=== PATIENT | female | born 1975 | race Caucasian/White ===

== ENCOUNTER 2020-06-07 11:31 | Emergency (ER) | payer MEDICAID, SELFPAY ==
[2020-06-07 11:44] VITALS: BP 120/66; PULSE 82; RESP 18; TEMP 36.8; O2SAT 100; BMI 32.1
--- NOTE | 2020-06-07 12:21 | HMH.EDUTC ---
[facility] [place] Clinical Impression: Exposure to COVID-19 virus Disposition: Home, Self-Care Condition on Discharge: Good Instructions: Preventing the Spread of Coronavirus Discharge Instructions Additional Instructions: Drink plenty of fluids. Take tylenol or ibuprofen for pain or fever. Follow up with your regular doctor. GO TO THE ER FOR ANY WORSENING SYMPTOMS FOLLOW THE DIRECTIONS ON THE COVID-19 HAND OUT THAT WE GAVE YOU REGARDING SELF-ISOLATION UNTIL YOU KNOW YOUR COVID-19 RESULTS Referrals: PCP,No [Primary Care Provider] - Time of Disposition: 12:23 Medical Decision Making - Medical Records Medical records reviewed: No: I reviewed the patient's medical records. - Duane Inquiry Pt receiving controlled substance: No Vital Signs: 06/07/20 11:44 06/07/20 12:44 Temperature 98.2 F 98.2 F Temperature Source Oral Oral Pulse Rate 82 Pulse Rate [Radial] 82 Respiratory Rate 18 18 Blood Pressure 120/66 Blood Pressure [Right Arm] 120/66 Blood Pressure Mean [Right Arm] 84 Blood Pressure Source Automatic Cuff Blood Pressure Source [Right Arm] Automatic Cuff Blood Pressure Position Sitting Blood Pressure Position [Right Arm] Sitting 02 Sat by Pulse Oximetry 100 Oxygen Delivery Method Room Air Room Air [facility] [place] - General Stated complaint: Covid test Time Seen by Provider: 06/07/20 12:22 Mode of Arrival: Ambulatory Source of Information: Patient Limitations: No Limitations Description of Symptoms (Recalled from Triage Doc. by RN): covid test HEENT Symptoms (Recalled from RN notes): No Resp Symptoms (Recalled from RN notes): No Skin Symptoms (Recalled from RN notes): No MS Symptoms (Recalled from RN notes): No Functional Status (Recalled from RN notes): wnl - History of Present Illness Provider Complaint: He is here to have a covid test for work; - Related Data Allergies Allergy/AdvReac Type Severity Reaction Status Date / Time CODEINE Allergy Mild I-ITCHING,R Uncoded 08/17/17 14:54 TOY - Worker's Comp Is this a Worker's Comp case?: No [facility] History - Hepatitis A Screen Drug use history?: No High risk sexual behaviors?: No History of sexually transmitted infection?: No Currently employed?: No Childcare worker?: No Do you have indoor plumbing?: Yes Do you have electricity?: Yes Attestation statement:: This patient has been screened for Hepatitis A risk factors. I have reviewed the patient's past medical history: Yes - Social History Smoking Status: Current every day smoker Tobacco Type: cigarettes # Packs/Day (cigarettes): 1 Alcohol Intake: never Occupational Status: other ROS Obtained: Yes All systems reviewed & no additional complaints - Constitutional Constitutional: Denies chills, Denies fever(s), Denies poor appetite, Denies malaise - Eyes Eyes: Denies eye discharge - ENT Ears, Nose, Mouth, and Throat: Denies dizziness, Denies otalgia, Denies sore throat - Cardiovascular Cardiovascular: Denies chest pain - Respiratory Respiratory: No chest congestion, No cough Physical Exam - General General appearance: alert, in no apparent distress - Head Head exam: atraumatic, normocephalic, normal inspection - Eye Eye exam: Present: normal appearance, PERRL, EOMI - ENT ENT exam: Present: normal exam, normal oropharynx, mucous membranes moist, TM's normal bilaterally, normal external ear exam - Neck Neck exam: Present: normal inspection, full ROM, trachea midline. Absent: meningismus, lymphadenopathy - Chest Chest inspection: Present: normal inspection, symmetric chest wall rise. Absent: tenderness - Respiratory Respiratory exam: Present: normal lung sounds bilaterally. Absent: respiratory distress - Cardiovascular Cardiovascular exam: Present: regular rate, normal rhythm. Absent: JVD - Abdominal Exam Abdominal exam: Present: soft, normal bowel sounds. Absent: distention, tenderness, guarding - Extremitie
[2020-06-07 12:44] VITALS: BP 120/66; PULSE 82; RESP 18; TEMP 36.8; O2SAT 100
== END 2020-06-07 12:44 | disposition home or self-care (01) ==
PROVIDERS: Emergency Provider Nurse Practitioner Family
DX: Z20.828 Contact with and (suspected) exposure to other viral communicable diseases (principal); F17.210 Nicotine dependence, cigarettes, uncomplicated
CPT/HCPCS: 99201; U0003

== ENCOUNTER 2020-08-09 07:49 | Emergency (ER) | payer MEDICAID, SELFPAY ==
[2020-08-09 07:50] VITALS: BP 117/80; PULSE 116; RESP 18; TEMP 37.3; O2SAT 98; BMI 32.0
--- NOTE | 2020-08-09 08:31 | HMH.EDGENADL ---
ED Disposition Clinical Impression: Pharyngitis Qualifiers: Pharyngitis/tonsillitis etiology: unspecified etiology Qualified Code(s): J02.9 - Acute pharyngitis, unspecified Disposition: Home, Self-Care Condition on Discharge: Good Additional Instructions: Please take meds as prescribed. Please drink plenty of clear fluids as well. If any voice changes, difficulty swallowing fluids, difficulty opening mouth, high fever/chills, generalized malaise, or other new concerning symptoms please immediately report back to our emergency department. Prescriptions: Penicillin V Potassium 500 mg PO BID 10 Days #20 tab Transmission Status: Pending to [facility] Referrals: PCP,No [Primary Care Provider] - - Critical Care Critical Care Time: No Attestation: On 08/09/20, the high probability of a clinically significant, sudden or life threatening deterioration of the following system(s) required my full and direct attention, intervention and personal management. The time I documented below is in addition to time spent performing reported procedures but includes the following listed in this critical care notation. Medical Decision Making - Medical Records Medical records reviewed: Yes: I reviewed the patient's medical records. - Duane Inquiry Pt receiving controlled substance: No Vital Signs: 08/09/20 07:50 Temperature 99.1 F Temperature Source Oral Pulse Rate [Left Radial] 116 H Respiratory Rate 18 Blood Pressure [Right Arm] 117/80 Blood Pressure Mean [Right Arm] 92 Blood Pressure Source [Right Arm] Automatic Cuff Blood Pressure Position [Right Arm] Sitting 02 Sat by Pulse Oximetry 98 Oxygen Delivery Method Room Air Orders (Tests/Meds): ED MEDICATIONS Discontinued Medications Generic Name Dose Route Start Last Admin Trade Name Solomonq PRN Reason Stop Dose Admin Dexamethasone 10 mg 08/09/20 08:36 Dexamethasone 1mg/1ml Intensol 10ml Udc (Er) PO 08/09/20 08:37 ONCE ONE ORDERS Category Date Time Status Rapid Strep Scrn Group A [Strep Scrn Group A (Rapid)] Lab 08/09/20 08:33 Ordered Stat Medical Decision Narrative: Patient 39-year-old female presenting with sore throat. At this time, she is hemodynamically stable without any phonation changes or any other red flag symptoms of sore throat including trismus/odynophagia. She does appear to be clinically hydrated. 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 Based on exam, patient will be given 1 dose of p.o. dexamethasone here in the emergency department due to her difficulty swallowing and a strep swab will be obtained. I do believe empiric antibiotic treatment is indicated that she does have left tonsillar exudate, cervical lymphadenopathy, absence of cough. At this time, she has improved somewhat after p.o. dexamethasone and does tolerate p.o. fluids and I do believe is safe to be discharged with strep swab pending. 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 Patient agrees with the above listed plan. She will drink plenty of clear fluids and return immediately to the emergency department if any fever/chills, changes in voice, difficulty swallowing fluids, trismus, or other new changes. Assessment: Pharyngitis Disposition: Home on antibiotics with follow-up General Adult HPI - General Chief complaint: Ear Stated complaint: Ear ache Time Seen by Provider: 08/09/20 08:20 Mode of Arrival: Ambulatory Limitations: No Limitations Description of Symptoms (Recalled from ER Triage Doc. by RN): c/o left ear pain since Wednesday and some drainage on that side. The pain increased last night and her mom gave her some drops for her ear but it didnt help. - History of Present Illness HPI narrative: Patient healthy 39-year-old female does have history of tobacco abuse presenting with left throat pain.
[2020-08-09 08:55] VITALS: BP 124/75; PULSE 112; RESP 18; TEMP 37.3; O2SAT 98
[2020-08-09 09:36] LABS: Strep Scrn Group A (Rapid) Positive (Negative)
== END 2020-08-09 08:56 | disposition home or self-care (01) ==
PROVIDERS: Emergency Provider Emergency Medicine
DX: J02.0 Streptococcal pharyngitis (principal); F17.210 Nicotine dependence, cigarettes, uncomplicated; Z88.5 Allergy status to narcotic agent
CPT/HCPCS: 87430; 99282

== ENCOUNTER → 2020-09-27 13:36 | Outpatient (CLI) | payer MEDICAID, SELFPAY ==
[2020-09-27 14:31] LABS: Alanine Aminotransferase 16 U/L (12-78); Albumin Level 4.7 g/dl (3.5-5.0); Albumin/Globulin Ratio 1.3 (1.1-1.8); Alkaline Phosphatase 98 U/L (38-126); Anion Gap 15.8 mEq/L (5-15); Aspartate Amino Transferase 27 U/L (14-36); Bilirubin,Total 0.7 mg/dl (0.2-1.3); Blood Urea Nitrogen 7 mg/dl (7-17); Calcium 9.9 mg/dl (8.4-10.2); Carbon Dioxide 28 mmol/L (22.0-30.0); Chloride 100 mmol/L (98-107); Cholesterol 214 mg/dl (140-200); Estimated Glomerular Filt Rate 90 ml/min (>60); GFR (African American) 109 ML/MIN (>60); Globulin 3.6 g/dL (1.3-3.2); Glucose 102 mg/dl (74-100); HDL Cholesterol 43 mg/dl (40-60); Potassium 3.8 mmoL/L (3.5-5.1); Sodium 140 mmol/L (136-145); Total Protein,Serum 8.3 g/dl (6.3-8.2); Triglycerides 148 mg/dl (30-150); VLDL Cholesterol 30 mg/dL (0-40)
[2020-09-27 14:33] LABS: Basophils # 0.1 K/mm3 (0-0.2); Basophils % 0.3 % (0.1-2.0); Eosinophils # 0.1 K/mm3 (0.0-0.4); Eosinophils % 0.5 % (0.1-12.0); Hematocrit 45.1 % (37.0-47.0); Hemoglobin 14.7 g/dL (12.2-16.2); Lymphocytes # 4.3 K/mm3 (0.7-4.5); Lymphocytes % 26.7 % (10-50); Mean Corpuscular HGB Conc 32.6 g/dL (31.8-35.4); Mean Corpuscular Volume 94.9 fl (81-99); Mean Platelet Volume 9.5 fl (7.4-10.4); Monocytes # 0.6 K/mm3 (0.1-1.0); Monocytes % 3.9 % (1.7-9.3); Neutrophils # 11.1 K/mm3 (1.8-7.8); Neutrophils % 68.6 % (37.0-80.0); Platelet Count 314 K/mm3 (142-424); Red Blood Count 4.76 M/mm3 (4.20-5.40); Red Cell Distribution Width 15.2 % (11.5-17.5); White Blood Count 16.1 K/mm3 (4.8-10.8)
[2020-09-27 14:37] LABS: MANUAL DIFFERENTIAL MANUAL DIFFERENTIAL (MANUAL DIFF)
[2020-09-27 14:43] LABS: Direct LDL Cholesterol 137.99 mg/dL (100-129)
[2020-09-27 14:53] LABS: 25-OH Vitamin D, Total < 12.8 ng/mL (30-100)
[2020-09-27 17:12] LABS: Lymphocytes % 35 % (10-50); Monocytes % 2 % (2-9); Neutrophils % 63 % (42-76); Platelet Estimate Normal; RBC Morphology Normal; Total Cells Counted 100
== END ==
PROVIDERS: Visit Provider Emergency Medicine
DX: R53.83 Other fatigue (principal); I73.9 Peripheral vascular disease, unspecified; E55.9 Vitamin D deficiency, unspecified; E66.9 Obesity, unspecified; Z68.30 Body mass index [BMI] 30.0-30.9, adult; Z72.0 Tobacco use; Z79.899 Other long term (current) drug therapy
CPT/HCPCS: 80053; 80061; 82306; 84436; 84443; 85007; 85025

== ENCOUNTER → 2020-10-11 15:35 | Outpatient (CLI) | payer MEDICAID, SELFPAY ==
--- NOTE | 2020-10-11 15:56 | US_ITS ---
APPROVED REPORT Exam Type: Ankle to Brachial Index Fire Fighter: RT Efren(R) Indications Claudication: Bilaterally Rest Pain: Bilaterally Current Smoker bilateral claudication, bilateral rest pain Risk Factors Current Smoker Pressures/Indices Right Indices Left Indices Brachial 118.00 mmHg Brachial 118.00 mmHg Low Thigh 112.00 mmHg 0.95 Low Thigh 118.00 mmHg 1.00 Calf 119.00 mmHg 1.01 Calf 126.00 mmHg 1.07 Ankle(PT) 108.00 mmHg 0.92 Ankle(PT) 124.00 mmHg 1.05 Ankle(DP) 108.00 mmHg 0.92 Ankle(DP) 110.00 mmHg 0.93 Digit 81.00 mmHg 0.69 Digit 84.00 mmHg 0.71 Findings RT NELY=0.92 LT NELY=1.05 RT TBI=0.69 LT TBI=0.71 Normal pulses Normal waveforms Conclusion RT NELY=0.92 LT NELY=1.05 RT TBI=0.69 LT TBI=0.71 Normal pulses Normal waveforms Electronically signed by : Joan Reeder MD 10/18/2020 09:31:21
== END ==
PROVIDERS: PCP Emergency Medicine; Visit Provider Emergency Medicine
DX: M79.662 Pain in left lower leg (principal); M79.661 Pain in right lower leg
CPT/HCPCS: 93923

== ENCOUNTER → 2020-12-13 14:11 | Outpatient (CLI) | payer MEDICAID, SELFPAY | PROVIDERS: PCP Emergency Medicine; Visit Provider Physician Assistant | DX: Z20.822 Contact with and (suspected) exposure to COVID-19 (principal) | CPT/HCPCS: U0003 ==

== ENCOUNTER → 2021-05-09 16:27 | Outpatient (CLI) | payer MEDICAID, SELFPAY ==
[2021-05-09 18:29] LABS: Alanine Aminotransferase 25 U/L (12-78); Albumin Level 4.3 g/dl (3.5-5.0); Albumin/Globulin Ratio 1.3 (1.1-1.8); Alkaline Phosphatase 96 U/L (38-126); Anion Gap 16.7 mEq/L (5-15); Aspartate Amino Transferase 34 U/L (14-36); Bilirubin,Total 0.4 mg/dl (0.2-1.3); Blood Urea Nitrogen 7 mg/dl (7-17); Calcium 9.5 mg/dl (8.4-10.2); Carbon Dioxide 27 mmol/L (22.0-30.0); Chloride 103 mmol/L (98-107); Chol/HDL Ratio 6.5 (1-3.5); Cholesterol 233 mg/dl (140-200); Estimated Glomerular Filt Rate 90 ml/min (>60); GFR (African American) 109 ML/MIN (>60); Globulin 3.4 g/dL (1.3-3.2); Glucose 109 mg/dl (74-100); HDL Cholesterol 36 mg/dl (40-60); Potassium 3.7 mmoL/L (3.5-5.1); Sodium 143 mmol/L (136-145); Total Protein,Serum 7.7 g/dl (6.3-8.2); Triglycerides 168 mg/dl (30-150); VLDL Cholesterol 34 mg/dL (0-40)
[2021-05-09 18:32] LABS: Basophils # 0.1 K/mm3 (0-0.2); Basophils % 0.5 % (0.1-2.0); Eosinophils # 0.1 K/mm3 (0.0-0.4); Eosinophils % 0.5 % (0.1-12.0); Hematocrit 45.8 % (37.0-47.0); Hemoglobin 14.7 g/dL (12.2-16.2); Lymphocytes # 3.3 K/mm3 (0.7-4.5); Mean Corpuscular HGB Conc 32.2 g/dL (31.8-35.4); Mean Corpuscular Hemoglobin 32.2 pg (27.0-31.2); Mean Corpuscular Volume 100.1 fl (81-99); Monocytes # 0.6 K/mm3 (0.1-1.0); Neutrophils # 6.6 K/mm3 (1.8-7.8); Neutrophils % 61.9 % (37.0-80.0); Platelet Count 346 K/mm3 (142-424); Red Blood Count 4.57 M/mm3 (4.20-5.40); Red Cell Distribution Width 14.8 % (11.5-17.5); White Blood Count 10.6 K/mm3 (4.8-10.8)
[2021-05-09 18:40] LABS: Direct LDL Cholesterol 148.14 mg/dL (100-129)
[2021-05-09 18:46] LABS: 25-OH Vitamin D, Total 32.2 ng/mL (30-100); Free T4 (Free Thyroxine) 1.11 ng/dl (0.78-2.19)
[2021-05-09 19:00] LABS: Thyroid Stimulating Hormone 0.59 uIU/mL (0.465-4.68)
[2021-05-11 09:54] LABS: Hep A Ab, IgM Negative (Negative); Hep A Ab, Total Positive (Negative); Hep B Core Ab, Total Negative (Negative); Hep B Surface Ab, Qual Non Reactive (.); Hepatitis B Surface Antigen Negative (Negative); Hepatitis C Antibody <0.1 s/co ratio (0.0-0.9)
[2021-05-12 00:05] LABS: HIV Screen 4th Generation wRfx Non Reactive (Non Reactive)
[2021-05-12 20:44] LABS: ALT (SGPT) P5P 23 IU/L (0-40); Alpha 2-Macroglobulins, Qn 164 mg/dL (110-276); Apolipoprotein A-1 105 mg/dL (116-209); Bilirubin, Total 0.2 mg/dL (0.0-1.2); Fibrosis Score 0.06 (0.00-0.21); GGT 37 IU/L (0-60); Haptoglobin 341 mg/dL (42-296); Necroinflammat Activity Grade A0-No activity (.); Necroinflammat Activity Score 0.07 (0.00-0.17)
== END ==
PROVIDERS: Visit Provider Emergency Medicine
DX: G62.9 Polyneuropathy, unspecified (principal); E55.9 Vitamin D deficiency, unspecified; E66.9 Obesity, unspecified; Z68.32 Body mass index [BMI] 32.0-32.9, adult; R94.5 Abnormal results of liver function studies; Z79.899 Other long term (current) drug therapy; Z11.4 Encounter for screening for human immunodeficiency virus [HIV]; F17.210 Nicotine dependence, cigarettes, uncomplicated
CPT/HCPCS: 80053; 80061; 81596; 82306; 84439; 84443; 85025; 86703; 86704; 86706; 86708; 87340; 87380; 87522; 87902; G0432

== ENCOUNTER → 2021-05-20 08:05 | Outpatient (CLI) | payer MEDICAID, SELFPAY ==
[2021-05-20 08:45] VITALS: PULSE 89; PULSE 90
== END ==
PROVIDERS: PCP Emergency Medicine; Visit Provider Emergency Medicine
DX: R06.02 Shortness of breath (principal)
CPT/HCPCS: 94060; 94618; 94640; 94726; 94729

== ENCOUNTER → 2021-08-21 06:15 | Outpatient (CLI) | payer MEDICAID, SELFPAY ==
--- NOTE | 2021-08-21 | CA_ITS ---
APPROVED REPORT Exam: Pharmacologic Technologist: Gianna Omalley, Ht: 5 ft 2 in Wt: 175 lbs BSA: 1.81 m2 HR: 88 bpm BP: 127/85 mmHg Rhythm: NSR, right axis deviation Medical History Medical History: Hyperlipidemia Medications: Gabapentin,,,,, Albuterol,,,,, BREo,,,,, AtorvaASTATIN,,,,, Cardiac Risk Factors: Hyperlipidemia, Smoking Stress Test Details Test: LEXISCAN HR Resting HR: 100 bpm Max Heart Rate (APMHR): 174.987378 bpm Max HR Achieved: 127 bpm Target HR (85% APMHR): 147.674177 bpm % of APMHR: 72.99 Recovery HR: 103 bpm BP Resting BP: 127/85 mmHg Max BP: 127/85 mmHg Recovery BP: 124.0/77.0 mmHg ECG Resting ECG: NSR, right axis deviation Clinical Exercise duration: 04:01 min Highest Stage Achieved: Exercise capacity: 1.0 METs Stress ECG Conclusion During lexiscan pt experinced SOA, no CP. No arrhythmias noted. NS ST changes. Unremarkable lexiscan stress. Myoview images reported separately. Test Summary REST . . . . . . . Sitting REST 02:57 . . 100 . 127/ 85 . . Stage 1 01:00 . . 121 . . . . Stage 2 01:00 . . 112 . 113/ 74 . . Stage 3 01:00 . . 106 . 115/ 74 . . Stage 4 01:00 . . 103 . 112/ 72 . . Stage 4 01:01 . . 103 . 112/ 72 . Stop exercise at 04:01 RECOVERY 01:00 . . 111 . . . . RECOVERY 02:00 . . 108 . 124/ 77 . . RECOVERY 03:00 . . 103 . 115/ 79 . . RECOVERY 03:14 . . 102 . 115/ 79 . . Electronically signed by : Law Kapadia MD 08/21/2021 18:52:52
--- NOTE | 2021-08-21 06:16 | NM_ITS ---
APPROVED REPORT Exam: Nuclear Stress Test Patient Location: Outpatient Stress Tech: Gianna MORALES Tech:Adalgisa KellyBRITTANY RT(R)(N) Ht: 5 ft 1 in Wt: 175 lbs Bra Size: 38c HR: 88 bpm BP: 127/85 mmHg BSA: 1.78 m2 BMI: 33.0 Procedure: Patient received a 0.4 mg of intravenous Lexiscan, resting heart rate 88 bpm, resting blood pressure 127/85 mmHg, with Lexiscan maximum heart rate achived was 112 bpm which is Less than 85 % of the maximum predicted heart rate and blood pressure was 115/74 mmHg. With Lexiscan, patient denied any complaint of chest pain. pt unable to lay on her belly due to her breathing Electrocardiogram Resting electrocardiogram shows sinus rhythm, with Lexiscan there is less than 1.[address] segment depression noted from the baseline EKG. The EKG portion of the Lexiscan Myoview is nondiagnostic. Cardiac Stress and Resting SPECT Images: Cardiac Stress and Resting SPECT images were obtained using technetium 99m Myoview 30.7 mCi stress and 10.47 mCi at rest. Gated SPECT for analysis of segmental wall motion and calculation of the ejection fraction also done. Cardiac stress and rest SPECT may show uniform myocardial activity without segmental perfusion abnormality compared right ejection fraction is 47% with no regional wall motion abnormality, right ventricle is normal size and contractility. Conclusion: 1. The EKG portion of the Lexiscan is nondiagnostic. 2. No scintigraphic evidence of reversible ischemia seen, compared right ejection fraction is 47% with no regional wall motion abnormality, right ventricle is normal size and contractility. 3. Normal Lexiscan Myoview study. Electronically signed by : Law Kapadia MD 08/21/2021 19:03:45
== END ==
PROVIDERS: PCP Emergency Medicine; Visit Provider Emergency Medicine
DX: R07.9 Chest pain, unspecified (principal)
CPT/HCPCS: 78452; 93017; A9502; J2785

== ENCOUNTER 2021-10-27 14:10 | Emergency (ER) | payer MEDICAID, SELFPAY ==
[2021-10-27 14:17] VITALS: BP 144/68; PULSE 78; TEMP 36.6; O2SAT 97; BMI 34.0
[2021-10-27 14:37] LABS: Apearance,Urine Clear (Clear); Color,Urine Yellow (Yellow); PH,Urine 7.5 (5.0-8.5); Specific Gravity, Urine 1.015 (1.005-1.030)
[2021-10-27 14:38] LABS: Bilirubin,Urine Negative (Negative); Blood, Urine Negative (Negative); Glucose,Urine (UA) Negative (Negative); Ketones,Urine Negative (Negative); Protein,Urine Negative (Negative); UTC Leukocyte Esterase,Urine Negative (Negative); UTC Nitrate,Urine Negative (Negative); Urobilinogen,Urine 0.2 EU/dl (0.2)
[2021-10-27 14:42] VITALS: BP 148/68; PULSE 78; RESP 18; TEMP 36.6; O2SAT 97; BMI 34.0
--- NOTE | 2021-10-27 15:41 | HMH.EDUTC ---
[facility] [place] Clinical Impression: Vaginal yeast infection Disposition: Home, Self-Care Condition on Discharge: Good Instructions: DI for Vaginal Yeast Infection, Fluconazole Additional Instructions: Take medication as prescribed FOllow up with your Family Doctor if no improvement or any worsening of symptoms Return if needed Straight to ER if any life threatening symptoms Prescriptions: Fluconazole [Diflucan 150mg tab] 150 mg PO ONCE #1 tab Transmission Status: Pending to [facility] Referrals: Ronnie Ball MD [Primary Care Provider] - As needed Time of Disposition: 15:49 Medical Decision Making - Duane Inquiry Pt receiving controlled substance: No Duane was queried for this patient: No Vital Signs: 10/27/21 14:17 10/27/21 14:42 Temperature 97.8 F 97.8 F Temperature Source Oral Oral Pulse Rate [Left Radial] 78 78 Respiratory Rate 18 Blood Pressure [Left Arm] 144/68 H 148/68 H Blood Pressure Mean [Left Arm] 93 94 Blood Pressure Source [Left Arm] Automatic Cuff Manual Cuff/ Doppler Blood Pressure Position [Left Arm] Sitting Sitting 02 Sat by Pulse Oximetry 97 97 Oxygen Delivery Method Room Air Room Air - Lab Data Lab results reviewed: Yes: I reviewed the patient's lab results. Lab Results 10/27/21 14:20: Urine Color Yellow, Urine Appearance Clear, Urine pH 7.5, Ur Specific [place] 1.015, Urine Protein Negative, Urine Glucose (UA) Negative, Urine Ketones Negative, Urine Blood Negative, Urine Nitrate Negative, Urine Bilirubin Negative, Urine Urobilinogen 0.2, Ur Leukocyte Esterase Negative [facility] [place] - General Stated complaint: possible kidney inf Time Seen by Provider: 10/27/21 15:41 Mode of Arrival: Ambulatory Source of Information: Patient Limitations: No Limitations Description of Symptoms (Recalled from Triage Doc. by RN): Pt stated that she thinks she has a kidney infection. She has burning when she urinates, and she has back pain for the past 3 days. HEENT Symptoms (Recalled from RN notes): No Resp Symptoms (Recalled from RN notes): No Skin Symptoms (Recalled from RN notes): No MS Symptoms (Recalled from RN notes): No Functional Status (Recalled from RN notes): n/a - History of Present Illness Provider Complaint: Patient states that she has been feeling achy in her back but she has history of back pain States that she has been having burning and itching in her vaginal area worse when she urinates, irritated and had a little white thick discharge thinks she may have a UTI - Related Data Home Medications Medication Instructions Recorded Confirmed fluticasone furoate 100 1 inh INHALATION DAILY 08/13/21 08/13/21 mcg-vilanterol 25 mcg/dose inhalation powder Atorvastatin Calcium [Lipitor 10mg See Rx Instructions .ROUTE .COMPLEX 10/27/21 10/27/21 Tab] Gabapentin 600 mg PO TID 10/27/21 10/27/21 Previous Rx's Medication Instructions Recorded albuterol sulfate 90 mcg/actuation 2 inh INHALATION Q4-6H PRN #1 each 08/13/21 breath activated powder inhaler Fluconazole [Diflucan 150mg tab] 150 mg PO ONCE #1 tab 10/27/21 Allergies Allergy/AdvReac Type Severity Reaction Status Date / Time codeine Allergy Mild Rash Verified 10/27/21 14:45 - Worker's Comp Is this a Worker's Comp case?: No Is this an H Worker's Comp?: No Is this a [place] Worker's Comp?: No [facility] History - Hepatitis A Screen Drug use history?: No High risk sexual behaviors?: No History of sexually transmitted infection?: No Currently employed?: No Childcare worker?: No Do you have indoor plumbing?: Yes Do you have electricity?: Yes Attestation statement:: This patient has been screened for Hepatitis A risk factors. I have reviewed the patient's past medical history: Yes Medical History: Reports:: Hyperlipidemia Other Surgeries: Yes: No Previous Surgery Amputation: No Fractures: No - Social History Smoking Status: Current every day smoker Tobacco Type: ciga
[2021-10-27 16:01] VITALS: BP 148/68; PULSE 78; RESP 18; TEMP 36.6; O2SAT 97
== END 2021-10-27 16:01 | disposition home or self-care (01) ==
LOC: ER 14:18 → UTC 14:18
PROVIDERS: Emergency Provider Nurse Practitioner; PCP Emergency Medicine
DX: B37.3 Candidiasis of vulva and vagina (principal)
CPT/HCPCS: 81003; 99212; G0463

== ENCOUNTER → 2021-11-18 16:00 | Outpatient (CLI) | payer MEDICAID, SELFPAY | PROVIDERS: Visit Provider Family Medicine | DX: M54.9 Dorsalgia, unspecified (principal); B96.20 Unspecified Escherichia coli [E. coli] as the cause of diseases classified elsewhere | CPT/HCPCS: 87086; 87088; 87186 ==

== ENCOUNTER 2022-01-20 12:11 | Emergency (ER) | payer MEDICAID, SELFPAY ==
[2022-01-20 13:00] VITALS: BP 130/85; PULSE 94; RESP 19; TEMP 37; O2SAT 98; BMI 33.0
[2022-01-20 13:27] LABS: Strep Scrn Group A (Rapid) Negative (Negative)
--- NOTE | 2022-01-20 13:34 | HMH.EDUTC ---
[facility] [place] Disposition Clinical Impression: Pharyngitis Qualifiers: Pharyngitis/tonsillitis etiology: unspecified etiology Qualified Code(s): J02.9 - Acute pharyngitis, unspecified Disposition: Home, Self-Care Condition on Discharge: Good Instructions: Sore Throat, Middle Ear Infection Additional Instructions: *Monitor Temp, Over the counter Motrin or Tylenol as directed/as needed Tylenol every 4 hours and Motrin every 6 hours (as long as your family doctor has told you that you can take it) for fever or pain. and straight to ER if unable to lower temp less than 101.0 after medication given *Warm salt water gargles may help to soothe the throat *Throat Lozenges *Warm fluids like tea with honey may help to soothe the throat *Sleep elevated *Humidifier/Vaporizer Your throat swab was sent for culture. Those results are typically sent to your primary care. Be sure to follow up in 2-3 days with your family doctor/primary care physician if no improvement so they can review those result and treat if necessary. If you don?t have a primary care doctor, I recommend you get one but in the mean time, you will have to return to a walk in clinic Follow up IMMEDIATELY for new or worsening symptoms or no Noticeable improvement over the next 48-72 hours. 911 for difficulty breathing or swallowing Prescriptions: predniSONE [Deltasone 10mg tablet] 10 mg PO BID 5 Days #10 tab Transmission Status: Pending to [facility] Cefdinir [Omnicef 300mg Capsule] 300 mg PO BID #20 cap Transmission Status: Pending to [facility] Referrals: Ronnie Ball MD [Primary Care Provider] - As needed Time of Disposition: 13:42 Medical Decision Making - Duane Inquiry Pt receiving controlled substance: No Duane was queried for this patient: No Vital Signs: 01/20/22 13:00 Temperature 98.6 F Temperature Source Oral Pulse Rate [Right Brachial] 94 H Respiratory Rate 19 Blood Pressure [Right Arm] 130/85 Blood Pressure Mean [Right Arm] 100 Blood Pressure Source [Right Arm] Automatic Cuff Blood Pressure Position [Right Arm] Sitting 02 Sat by Pulse Oximetry 98 - Lab Data Lab results reviewed: Yes: I reviewed the patient's lab results. Lab Results 01/20/22 13:10: Group A Strep Rapid Negative Orders (Tests/Meds): ORDERS Category Date Time Status Strep Screen Confirmation Stat Micro 01/20/22 13:10 Received [facility] [place] HPI - General Stated complaint: sore throat, oral blisters, ear pain Time Seen by Provider: 01/20/22 13:34 Mode of Arrival: Ambulatory Source of Information: Patient Limitations: No Limitations Description of Symptoms (Recalled from Triage Doc. by RN): PATIENT C/O SORE THROAT, BLISTERS ON TONGUE, LEFT EAR PAIN, AND COUGH SINCE WEDNESDAY HEENT Symptoms (Recalled from RN notes): Yes Resp Symptoms (Recalled from RN notes): Yes Skin Symptoms (Recalled from RN notes): No MS Symptoms (Recalled from RN notes): No Functional Status (Recalled from RN notes): WNL - History of Present Illness Provider Complaint: Patient states that she has been having sore throat, feels like she has blisters on her tongue, pain in left ear and cough since states that today she was hoarse and still not feeling well so she came in to get checked - Related Data Home Medications Medication Instructions Recorded Confirmed Atorvastatin Calcium [Lipitor 10mg See Rx Instructions .ROUTE .COMPLEX 01/20/22 01/20/22 Tab] Previous Rx's Medication Instructions Recorded gabapentin 600 mg tablet 600 mg PO QID #120 tab 12/30/21 hydrocodone 7.5 mg-acetaminophen 1 tab PO TID PRN #90 tab 12/30/21 325 mg tablet Cefdinir [Omnicef 300mg Capsule] 300 mg PO BID #20 cap 01/20/22 predniSONE [Deltasone 10mg tablet] 10 mg PO BID 5 Days #10 tab 01/20/22 Allergies Allergy/AdvReac Type Severity Reaction Status Date / Time codeine Allergy Mild Rash Verified 12/30/21 10:25 - Worker's Comp Is this a Worker's Comp case
[2022-01-20 13:42] VITALS: BP 130/85; PULSE 94; RESP 19; TEMP 37; O2SAT 98
== END 2022-01-20 13:47 | disposition home or self-care (01) ==
PROVIDERS: Emergency Provider Nurse Practitioner; PCP Emergency Medicine
DX: J02.9 Acute pharyngitis, unspecified (principal); H92.02 Otalgia, left ear; R05.9 Cough, unspecified
CPT/HCPCS: 87430; 99212; G0463

== ENCOUNTER → 2022-02-18 11:37 | Outpatient (CLI) | payer MEDICAID, SELFPAY ==
--- NOTE | 2022-02-18 11:42 | XR_ITS ---
FINAL REPORT CLINICAL HISTORY: back pain, recent falls FINDINGS: 5 views of the lumbar spine were obtained. There is no evidence of fracture or dislocation. The vertebral alignment is normal. There is mild degenerative change with osteophytes. There is facet arthropathy in the lower lumbar spine. There are vascular calcifications noted. IMPRESSION: Degenerative change with osteophytes with no acute bony abnormality. Reviewed, Interpreted and Dictated by Navi Lubin III, MD Transcribed by Janay Cassidy Authenticated and [facility]
--- NOTE | 2022-02-18 11:42 | XR_ITS ---
FINAL REPORT CLINICAL HISTORY: hip pain, recent falls FINDINGS: LEFT HIP: Two views of the left hip demonstrate no acute fracture or dislocation. There is mild degenerative change. The visualized bony structures are well aligned. No soft tissue abnormality is seen. IMPRESSION: Degenerative change with no acute bony abnormality. Reviewed, Interpreted and Dictated by Navi Lubin III, MD Transcribed by Janay Cassidy Authenticated and [facility]
--- NOTE | 2022-02-18 11:42 | XR_ITS ---
FINAL REPORT CLINICAL HISTORY: pelvis pain, recent falls FINDINGS: PELVIS SERIES Three views of the pelvis were obtained. There is no acute fracture or dislocation. Visualized joint spaces are normally aligned. Soft tissues are unremarkable. IMPRESSION: No acute bony abnormality. Reviewed, Interpreted and Dictated by Navi Lubin III, MD Transcribed by Janay Cassidy Authenticated and . [facility]
== END ==
PROVIDERS: PCP Emergency Medicine; Visit Provider Emergency Medicine
DX: R10.2 Pelvic and perineal pain (principal); M25.552 Pain in left hip; M54.50 Low back pain, unspecified
CPT/HCPCS: 72110; 72190; 73502

== ENCOUNTER → 2022-03-02 11:51 | Outpatient (CLI) | payer MEDICAID, SELFPAY ==
[2022-03-02 11:54] LABS: MANUAL DIFFERENTIAL MANUAL DIFFERENTIAL (MANUAL DIFF)
[2022-03-02 12:22] LABS: Basophils # 0.3 K/mm3 (0-0.2); Eosinophils # 0.2 K/mm3 (0.0-0.4); Eosinophils % 1.8 % (0.1-12.0); Hematocrit 44.7 % (37.0-47.0); Hemoglobin 13.6 g/dL (12.2-16.2); Lymphocytes # 3.6 K/mm3 (0.7-4.5); Lymphocytes % 37.2 % (10-50); Mean Corpuscular HGB Conc 30.4 g/dL (31.8-35.4); Mean Corpuscular Hemoglobin 30.1 pg (27.0-31.2); Mean Platelet Volume 8.3 fl (7.4-10.4); Monocytes # 0.5 K/mm3 (0.1-1.0); Monocytes % 5.1 % (1.7-9.3); Neutrophils # 5.1 K/mm3 (1.8-7.8); Neutrophils % 52.9 % (37.0-80.0); Platelet Count 295 K/mm3 (142-424); Red Blood Count 4.51 M/mm3 (4.20-5.40); Red Cell Distribution Width 15.8 % (11.5-17.5); White Blood Count 9.7 K/mm3 (4.8-10.8)
[2022-03-02 12:39] LABS: Chloride 107 mmol/L (98-107); Sodium 140 mmol/L (136-145)
[2022-03-02 12:40] LABS: Potassium 4.3 mmoL/L (3.5-5.1)
[2022-03-02 12:42] LABS: Blood Urea Nitrogen 7 mg/dl (7-17); Estimated Glomerular Filt Rate 77 ml/min (>60); GFR (African American) 93 ML/MIN (>60)
[2022-03-02 12:43] LABS: Anion Gap 11.3 mEq/L (5-15); Calcium 9.9 mg/dl (8.4-10.2); Carbon Dioxide 26 mmol/L (22.0-30.0); Glucose 105 mg/dl (74-100)
[2022-03-02 13:15] LABS: Anisocytosis 1+; Eosinophils % 4 % (0-3); Lymphocytes % 38 % (10-50); Macrocytosis 1+; Monocytes % 7 % (2-9); Neutrophils % 51 % (42-76); Platelet Estimate Normal; Total Cells Counted 100
[2022-03-02 13:16] LABS: Hypochromasia 1+
== END ==
PROVIDERS: PCP Emergency Medicine; Visit Provider Otolaryngology
DX: Z01.812 Encounter for preprocedural laboratory examination (principal); Z20.822 Contact with and (suspected) exposure to COVID-19; L72.0 Epidermal cyst
CPT/HCPCS: 36415; 80048; 85007; 85014; 85018; 85048; 85049; C9803; U0003; U0005

== ENCOUNTER 2022-03-03 07:49 | Day surgery (SDC) | payer MEDICAID, SELFPAY ==
[2022-02-26 10:23] VITALS: BMI 35.3
--- NOTE | 2022-03-03 08:09 | ECG_ITS ---
APPROVED REPORT Exam: Resting ECG HR:79 bpm ECG Measurements Heart Rate 79 AXES WY 177 P 87 QRSd 86 QRS 57 QT 353 T 29 QTc 387 Conclusion SINUS RHYTHM Late R wave progression, unchanged from prior ABNORMAL ECG UNCONFIRMED REPORT Electronically signed by : Kris Dallas MD 03/05/2022 17:49:39
[2022-03-03 08:10] VITALS: BP 112/73; PULSE 79; RESP 16; TEMP 36.4; O2SAT 97
--- NOTE | 2022-03-03 09:48 | P.PN_ITS ---
[facility] Anesthesia Checklist - Patient Identification Patient Identification: Arm Band - Structural Data Admitted From: Home Planned Operative Procedure/s: Excision of Epidermal Cyst Left Cheek Consent for Planned Operative Procedure(s) Verified: Yes Verified Documents: Surgical Consent, History and Physical - NPO Status Verified Time NPO: 00:00 - Additional verifications Anesthesia Reactions: No Hx Blood Transfusions: No Blood Transfusion Reaction: No - Airway Assessment C-Spine Mobility Assessed: Yes (mp2) TMJ Mobility Assessed: Yes Dentition: Dentures-good fit - Neurological Assessment Level of Consciousness: Awake, Alert - Anesthesia Plan Anesthesia Risk discussed: Yes Anesthesia Plan: Verified ASA Class: II Anesthesia Type: MAC [facility] History I have reviewed the patient's past medical history: Yes Medical History: Reports:: Hyperlipidemia Denies:: Cancer, Diabetes Mellitus Type 1, Diabetes Mellitus Type 2, Internal Pacemaker, MRSA, Seizures *Have you ever received a pneumonia vaccine?: No *Have you received a flu vaccine this season?: No Other Medical History: Denies: Blood Transfusion Reaction Anesthesia experience/problems:: nac Other Surgeries: Yes: Hysterectomy-Total. No: Pacemaker Amputation: No Fractures: No - *Social History Last grade of school completed: High school graduate Smoking Status: Current every day smoker Tobacco Type: cigarettes # Packs/Day (cigarettes): 1 Alcohol Intake: never Substance Use Type: former substance user *Occupational Status:: other Housing: house Household Members: significant other *Travel in the last 8 weeks: None Family Hx:: Heart Attack, Coronary Artery Disease, Hypertension
--- NOTE | 2022-03-03 10:57 | HMH.OPNOTE ---
Date of procedure: 03/03/22 Pre-op Diagnosis:: Left facial epidermal inclusion cyst 2 cm in size Post-op Diagnosis:: Left facial epidermal inclusion cyst 2 cm in size Procedure performed:: Excision left facial epidermal inclusion cyst with multilayer closure Surgeon:: Nick Iverson MD SHOW HORSE DRIVER:: Wenceslao Tilley Anesthesia: MAC Estimated blood loss (mL): 0 Operative findings:: Two centimeter probable epidermal inclusion cyst Operative note:: The patient was brought to the operating room and placed supine and after adequate IV sedation, 1% lidocaine with epinephrine was used to locally infiltrate the epidermal inclusion cyst that was over her zygoma 3 cm lateral to her lateral canthus. The face was then prepped and draped in the usual sterile fashion and then a planned elliptical incision outlined designed to fall into a natural skin crease. Incision was made and carried through the underlying dermis and then sharp dissection performed along the capsule of the cyst excising it from the surrounding subcutaneous fat. The cyst was removed entirely intact. Hemostasis was established with bipolar cautery and then the wound closed in 2 layers with 5-0 Vicryl and 6-0 nylon. A sterile dressing was placed and the procedure concluded. All counts correct. Blood loss 0. Patient was sent to recovery in stable condition. Condition: stable Disposition: PACU Complications:: None
[2022-03-03 10:58] VITALS: BP 127/68; PULSE 80; RESP 18; TEMP 36.2; O2SAT 99
[2022-03-03 11:08] VITALS: BP 109/69; PULSE 81; RESP 18; O2SAT 99
[2022-03-03 11:18] VITALS: BP 118/70; PULSE 82; RESP 18; O2SAT 99
[2022-03-03 11:20] VITALS: BP 122/81; PULSE 84; RESP 18; O2SAT 97
== END 2022-03-03 11:20 | disposition home or self-care (01) ==
LOC: OR 07:50
PROVIDERS: PCP Emergency Medicine; Visit Provider Otolaryngology
PROC: (CPT 11442; principal; 2022-03-03 09:30)
DX: L72.0 Epidermal cyst (principal); E78.5 Hyperlipidemia, unspecified; Z72.0 Tobacco use; Z79.899 Other long term (current) drug therapy
CPT/HCPCS: 11442; 93005; 96374

== ENCOUNTER 2022-03-04 17:00 | Outpatient (RCR) | payer MEDICAID, SELFPAY ==
--- NOTE | 2022-02-23 16:07 | HMH.PTOPEV ---
PT Outpatient Evaluation Rehab PT Outpatient Evaluation Start: 02/23/22 14:06 Freq: Status: Active Protocol: Document 02/23/22 14:06 PDESEROUX (Rec: 02/23/22 16:07 [email or web address] [id number]) Electronically Signed By Jeremy Katz PT 02/23/22 14:06 Outpatient Therapy Subjective History Subjective History Pt. is a 46 year old female who presents to [facility] Out[facility] Physical Therapy Services in [place] for the initial evaluation this date( 02/23/22) w/ c/o subacute and constant L-sided LB, hip, and LLE P!, numbness, edema, and giving out of traumatic onset since the first week of December 2021. Pt. reports falling forward and almost onto her face after shoving a shopping cart forward into it's cart hall and noticing the P! when she straightened back up. Pt. reports not having any symptom relief w/ prescribed muscle relaxers nor anti- inflammatories. Pt. reports having some symptom relief w/ laying down and putting a pillow b/t/under her knees. Pt . reports symptoms worsen w/ bending forward, sitting for long periods, and walking for long periods. Pt. reports symptoms will radiate all the way to her toes the longer she sits. Pt. denies numbness/ tingling into the RLE, denies having any bowel/bladder dysfunction at this time. Pt. reports having X-ray last Wednesday(02/18/22), but hasn' t heard back from her MD yet. Pt. denies having injections for current complaint. Current medications include Lipitor, Gabapentin, Lortab, and Narco. 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
== END 2022-04-09 16:56 | disposition home or self-care (01) ==
LOC: PT.CARL 17:00
PROVIDERS: PCP Emergency Medicine; Visit Provider Emergency Medicine
DX: M54.50 Low back pain, unspecified (principal)
CPT/HCPCS: 97010; 97014; 97110; 97140; 97163; G0283

== ENCOUNTER 2022-04-15 14:50 | Emergency (ER) | payer MEDICAID, SELFPAY ==
--- NOTE | 2022-04-15 15:20 | HMH.EDUTC ---
[facility] [place] Clinical Impression: Viral syndrome, Exposure to COVID-19 virus Disposition: Home, Self-Care Condition on Discharge: Good Instructions: DI for COVID-19 (Suspected or Confirmed ), Preventing the Spread of Coronavirus Discharge Instructions Additional Instructions: Drink plenty of fluids. Take tylenol or ibuprofen for pain or fever. Take the medications as directed. Follow up with your regular doctor. GO TO THE ER FOR ANY WORSENING SYMPTOMS Quarantine until you know the results of your covid-19 test. Notify your school or workplace of your results and follow their instructions regarding return to work/school. Prescriptions: Ondansetron [Zofran 4mg ODT] 4 mg PO Q8HP PRN #12 tab PRN Reason: Nausea Transmission Status: Received by [facility] Benzonatate [Benzonatate 100mg cap] 100 mg PO TIDP PRN #30 cap PRN Reason: Cough Transmission Status: Received by [facility] Referrals: Ronnie Ball MD [Primary Care Provider] - Forms: Work/School Release Time of Disposition: 15:37 Medical Decision Making - Medical Records Medical records reviewed: No: I reviewed the patient's medical records. - [place]ane Inquiry Pt receiving controlled substance: No Vital Signs: 04/15/22 15:22 04/15/22 15:42 Temperature 98.7 F 98.7 F Temperature Source Oral Pulse Rate 85 Pulse Rate [Left] 85 Respiratory Rate 17 17 Blood Pressure 115/76 Blood Pressure [Right Arm] 115/76 Blood Pressure Mean [Right Arm] 89 02 Sat by Pulse Oximetry 98 [facility] [place] - General Stated complaint: Positive covid 04/14/22 Bodyache fever sore throat Time Seen by Provider: 04/15/22 15:21 - History of Present Illness Provider Complaint: She tested positive on a home covid-19 test yesterday. She is here today with fever, chills, congestion and feeling very bad. - Related Data Previous Rx's Medication Instructions Recorded albuterol sulfate 90 mcg/actuation 1 puff IH BID PRN #8.5 g 02/26/22 aerosol inhaler atorvastatin 10 mg tablet 10 mg PO DAILY #90 tab 02/26/22 fluticasone 100 mcg-salmeterol 50 1 inh IH BID #60 each 02/26/22 mcg/dose blistr powdr for inhalation fluconazole 100 mg tablet 100 mg PO DAILY 5 Days #5 tab 03/18/22 pantoprazole 40 mg tablet,delayed 40 mg PO DAILY #30 tab 03/18/22 release phentermine 37.5 mg tablet 37.5 mg PO DAILY #30 tab 03/18/22 meloxicam 15 mg tablet See Rx Instructions .ROUTE 03/30/22 .COMPLEX #30 tab gabapentin 600 mg tablet 600 mg PO QID #120 tab 04/07/22 hydrocodone 7.5 mg-acetaminophen 1 tab PO TID PRN #90 tab 04/07/22 325 mg tablet Benzonatate [Benzonatate 100mg 100 mg PO TIDP PRN #30 cap 04/15/22 cap] Ondansetron [Zofran 4mg ODT] 4 mg PO Q8HP PRN #12 tab 04/15/22 Allergies Allergy/AdvReac Type Severity Reaction Status Date / Time codeine Allergy Mild Rash Verified 04/15/22 15:25 [facility] History - Hepatitis A Screen Attestation statement:: This patient has been screened for Hepatitis A risk factors. I have reviewed the patient's past medical history: Yes Medical History: Reports:: Hyperlipidemia Denies:: Cancer, Diabetes Mellitus Type 1, Diabetes Mellitus Type 2, Internal Pacemaker, MRSA, Seizures Other Medical History: Denies: Blood Transfusion Reaction Other Surgeries: Yes: No Previous Surgery, Hysterectomy-Total. No: Pacemaker Amputation: No Fractures: No - Social History Smoking Status: Current every day smoker Tobacco Type: cigarettes # Packs/Day (cigarettes): 1 Alcohol Intake: never Substance Use Type: former substance user Occupational Status: other Housing: house Household Members: significant other Family Hx:: Heart Attack, Coronary Artery Disease, Hypertension ROS Obtained: Yes All systems reviewed & no additional complaints - Constitutional Constitutional: Reports as per HPI - Eyes Eyes: Denies eye discharge - ENT Ears, Nose, Mouth, and Throat: Reports as per HPI - Cardiovasc
[2022-04-15 15:22] VITALS: BP 115/76; PULSE 85; RESP 17; TEMP 37.1; O2SAT 98; BMI 34.0
[2022-04-15 15:42] VITALS: BP 115/76; PULSE 85; RESP 17; TEMP 37.1
== END 2022-04-15 15:43 | disposition home or self-care (01) ==
PROVIDERS: Emergency Provider Nurse Practitioner Family; PCP Emergency Medicine
DX: B34.9 Viral infection, unspecified (principal); Z20.822 Contact with and (suspected) exposure to COVID-19
CPT/HCPCS: 99212; C9803; G0463; U0003; U0005

== ENCOUNTER → 2022-05-01 18:33 | Outpatient (CLI) | payer MEDICAID, SELFPAY ==
[2022-05-01 18:53] LABS: Amphetamine/Metha Screen,Urine Negative ng/ml (<1000)
[2022-05-01 18:54] LABS: Barbiturates Screen,Urine Negative ng/ml (<200)
[2022-05-01 18:57] LABS: Benzodiazepines Screen,Urine Negative ng/ml (<200)
[2022-05-01 18:58] LABS: Cannabinoid Screen,Urine Positive ng/ml (<50)
[2022-05-01 18:59] LABS: Cocaine Screen,Urine Negative ng/ml (<300); Methadone Screen,Urine Negative ng/ml (<300)
[2022-05-01 19:00] LABS: Opiate Screen,Urine Positive ng/ml (<300)
[2022-05-01 19:01] LABS: Phencyclidine Screen,Urine Negative ng/ml (<25)
== END ==
PROVIDERS: PCP Emergency Medicine; Visit Provider Emergency Medicine
DX: Z79.899 Other long term (current) drug therapy (principal)
CPT/HCPCS: 80305

== ENCOUNTER → 2022-08-18 09:30 | Outpatient (CLI) | payer MEDICAID, SELFPAY ==
[2022-08-18 15:07] LABS: Amphetamine/Metha Screen,Urine Negative ng/ml (<1000)
[2022-08-18 15:08] LABS: Barbiturates Screen,Urine Negative ng/ml (<200)
[2022-08-18 15:09] LABS: Benzodiazepines Screen,Urine Negative ng/ml (<200); Cannabinoid Screen,Urine Negative ng/ml (<50)
[2022-08-18 15:10] LABS: Cocaine Screen,Urine Negative ng/ml (<300); Methadone Screen,Urine Negative ng/ml (<300)
[2022-08-18 15:11] LABS: Opiate Screen,Urine Positive ng/ml (<300)
[2022-08-18 15:12] LABS: Phencyclidine Screen,Urine Negative ng/ml (<25)
== END ==
PROVIDERS: PCP Emergency Medicine; Visit Provider Emergency Medicine
DX: Z79.899 Other long term (current) drug therapy (principal)
CPT/HCPCS: 80305

== ENCOUNTER 2022-10-09 08:00 | Outpatient (RCR) | payer MEDICAID, SELFPAY ==
--- NOTE | 2022-09-10 17:13 | HMH.PTOPEV ---
PT Outpatient Evaluation Rehab PT Outpatient Evaluation Start: 09/10/22 16:26 Freq: Status: Active Protocol: Document 09/10/22 16:27 PDESEROUX (Rec: 09/10/22 17:13 [email or web address] [id number]) E-signed By Jeremy Katz, PT Outpatient Therapy Subjective History Subjective History Pt. is a 46 year old female whom presents to [facility] Out[facility] Therapy Services in [place] for the initial evaluation this date( 09/10/22) w/ c/o chronic and constant L-sided lumbar and LLE P!, tingling, and weakness of traumatic onset 6-7 months ago. Pt. reports it was wet outside when she shoved a shopping cart forward resulting in a slip and fall onto her hands and knees when current symptoms originated. Diagnostic imaging(radiograph) positive for sciatica per pt. report. Pt. denies having any recent injections for current complaint. Pt. reports having some symptom relief w/ previous Physical Therapy for current complaint, reports losing her HEP from previous session so pt. has not continued w/ HEP. Pt. reports symptoms worsen w/ laying on her L side, sitting for long periods of time, and bending over. Pt. reports having some symptom relief w/ standing and walking it out. Pt. RTMD 2022. Current medications include Gabapentin and Lortab . PMH includes Hyperlipidemia, partial hysterectomy. Pt. denies hx. of pacemaker, denies hx. of diabetes, denies hx. of cancer(self), reports medicational allergy to codeine, denies latex allergy. Chief Complaint Pain,Stiff,Gives out/Unstable, Paresthesia,Weakness Symptom Type Ache,Sharp,Stabbing,Burning, Tingling,Shooting Symptoms Re
== END 2022-11-17 08:20 | disposition home or self-care (01) ==
LOC: PT 08:00
PROVIDERS: PCP Emergency Medicine; Visit Provider Emergency Medicine
DX: M54.16 Radiculopathy, lumbar region (principal)
CPT/HCPCS: 97010; 97014; 97110; 97140; 97163; 97164; G0283

== ENCOUNTER → 2022-10-23 15:27 | Outpatient (CLI) | payer MEDICAID, SELFPAY ==
[2022-10-23 14:45] LABS: Amphetamine/Metha Screen,Urine Negative ng/ml (<1000)
[2022-10-23 14:46] LABS: Barbiturates Screen,Urine Negative ng/ml (<200); Benzodiazepines Screen,Urine Negative ng/ml (<200)
[2022-10-23 14:48] LABS: Cannabinoid Screen,Urine Negative ng/ml (<50)
[2022-10-23 14:49] LABS: Cocaine Screen,Urine Positive ng/ml (<300); Methadone Screen,Urine Negative ng/ml (<300)
[2022-10-23 14:50] LABS: Opiate Screen,Urine Positive ng/ml (<300)
[2022-10-23 14:51] LABS: Phencyclidine Screen,Urine Negative ng/ml (<25)
== END ==
PROVIDERS: PCP Emergency Medicine; Visit Provider Emergency Medicine
DX: Z79.899 Other long term (current) drug therapy (principal)
CPT/HCPCS: 80305

== ENCOUNTER → 2022-12-22 08:30 | Outpatient (CLI) | payer MEDICAID, SELFPAY ==
[2022-12-22 16:43] LABS: Barbiturates Screen,Urine Negative ng/ml (<200)
[2022-12-22 16:44] LABS: Amphetamine/Metha Screen,Urine Negative ng/ml (<1000); Benzodiazepines Screen,Urine Negative ng/ml (<200)
[2022-12-22 16:45] LABS: Cocaine Screen,Urine Negative ng/ml (<300)
[2022-12-22 16:46] LABS: Cannabinoid Screen,Urine Negative ng/ml (<50); Methadone Screen,Urine Negative ng/ml (<300)
[2022-12-22 16:47] LABS: Opiate Screen,Urine Positive ng/ml (<300)
[2022-12-22 16:48] LABS: Phencyclidine Screen,Urine Negative ng/ml (<25)
== END ==
PROVIDERS: PCP Emergency Medicine; Visit Provider Emergency Medicine
DX: Z79.899 Other long term (current) drug therapy (principal)
CPT/HCPCS: 80305

== ENCOUNTER → 2023-02-22 23:38 | Outpatient (CLI) | payer MEDICAID, SELFPAY ==
[2023-02-22 19:38] LABS: Basophils # 0.1 K/mm3 (0-0.2); Basophils % 0.5 % (0.1-2.0); Eosinophils # 0.2 K/mm3 (0.0-0.4); Hematocrit 43.3 % (37.0-47.0); Hemoglobin 13.4 g/dL (12.2-16.2); Lymphocytes # 5.7 K/mm3 (0.7-4.5); Mean Corpuscular HGB Conc 30.9 g/dL (31.8-35.4); Mean Corpuscular Hemoglobin 30.6 pg (27.0-31.2); Mean Corpuscular Volume 98.9 fl (81-99); Mean Platelet Volume 9.2 fl (7.4-10.4); Monocytes # 0.5 K/mm3 (0.1-1.0); Monocytes % 4.3 % (1.7-9.3); Neutrophils # 4.1 K/mm3 (1.8-7.8); Neutrophils % 39.3 % (37.0-80.0); Platelet Count 265 K/mm3 (142-424); Red Blood Count 4.38 M/mm3 (4.20-5.40); Red Cell Distribution Width 14.5 % (11.5-17.5); White Blood Count 10.5 K/mm3 (4.8-10.8)
[2023-02-22 19:42] LABS: MANUAL DIFFERENTIAL MANUAL DIFFERENTIAL (MANUAL DIFF)
[2023-02-22 19:50] LABS: Alanine Aminotransferase 26 U/L (12-78); Albumin Level 4.4 g/dl (3.5-5.0); Albumin/Globulin Ratio 1.5 (1.1-1.8); Alkaline Phosphatase 99 U/L (38-126); Anion Gap 17.6 mEq/L (5-15); Aspartate Amino Transferase 33 U/L (14-36); Bilirubin,Total 0.2 mg/dl (0.2-1.3); Blood Urea Nitrogen 6 mg/dl (7-17); Calcium 8.9 mg/dl (8.4-10.2); Carbon Dioxide 24 mmol/L (22.0-30.0); Chloride 104 mmol/L (98-107); Chol/HDL Ratio 4.6 (1-3.5); Cholesterol 185 mg/dl (140-200); Estimated Glomerular Filt Rate 77 ml/min (>60); GFR (African American) 93 ML/MIN (>60); Globulin 2.9 g/dL (1.3-3.2); Glucose 136 mg/dl (74-100); HDL Cholesterol 40 mg/dl (40-60); Potassium 3.6 mmoL/L (3.5-5.1); Sodium 142 mmol/L (136-145); Total Protein,Serum 7.3 g/dl (6.3-8.2); Triglycerides 234 mg/dl (30-150); VLDL Cholesterol 47 mg/dL (0-40)
[2023-02-22 20:00] LABS: 25-OH Vitamin D, Total 23.4 ng/mL (30-100)
[2023-02-22 20:01] LABS: Direct LDL Cholesterol 102.14 mg/dL (100-129)
[2023-02-22 20:07] LABS: Eosinophils % 1 % (0-3); Free T4 (Free Thyroxine) 0.91 ng/dl (0.78-2.19); Hypochromasia 2+; Lymphocytes % 59 % (10-50); Monocytes % 4 % (2-9); Neutrophils % 36 % (42-76); Platelet Estimate Normal; Total Cells Counted 100
[2023-02-22 20:19] LABS: Thyroid Stimulating Hormone 1.07 uIU/mL (0.465-4.68)
[2023-02-22 21:07] LABS: Amphetamine/Metha Screen,Urine Negative ng/ml (<1000)
[2023-02-22 21:08] LABS: Barbiturates Screen,Urine Negative ng/ml (<200); Benzodiazepines Screen,Urine Negative ng/ml (<200)
[2023-02-22 21:09] LABS: Cannabinoid Screen,Urine Negative ng/ml (<50)
[2023-02-22 21:10] LABS: Cocaine Screen,Urine Negative ng/ml (<300); Methadone Screen,Urine Negative ng/ml (<300)
[2023-02-22 21:11] LABS: Opiate Screen,Urine Negative ng/ml (<300)
[2023-02-22 21:12] LABS: Phencyclidine Screen,Urine Negative ng/ml (<25)
== END ==
PROVIDERS: PCP Emergency Medicine; Visit Provider Emergency Medicine
DX: E55.9 Vitamin D deficiency, unspecified (principal); E66.9 Obesity, unspecified; Z68.35 Body mass index [BMI] 35.0-35.9, adult; Z79.899 Other long term (current) drug therapy
CPT/HCPCS: 80053; 80061; 80305; 82306; 84439; 84443; 85007; 85025

== ENCOUNTER → 2023-05-12 08:14 | Outpatient (CLI) | payer MEDICAID, SELFPAY ==
[2023-04-23 20:58] LABS: Amphetamine/Metha Screen,Urine Negative ng/ml (<1000); Barbiturates Screen,Urine Negative ng/ml (<200)
[2023-04-23 20:59] LABS: Benzodiazepines Screen,Urine Negative ng/ml (<200); Cannabinoid Screen,Urine Negative ng/ml (<50)
[2023-04-23 21:04] LABS: Cocaine Screen,Urine Negative ng/ml (<300)
[2023-04-23 21:05] LABS: Methadone Screen,Urine Negative ng/ml (<300)
[2023-04-23 21:06] LABS: Opiate Screen,Urine Negative ng/ml (<300); Phencyclidine Screen,Urine Negative ng/ml (<25)
== END ==
PROVIDERS: PCP Emergency Medicine; Visit Provider Emergency Medicine
DX: Z79.899 Other long term (current) drug therapy (principal)
CPT/HCPCS: 80305

== ENCOUNTER → 2023-06-18 10:21 | Outpatient (CLI) | payer MEDICAID, SELFPAY ==
[2023-06-18 13:20] LABS: Phencyclidine Screen,Urine Negative ng/ml (<25)
[2023-06-18 13:21] LABS: Barbiturates Screen,Urine Negative ng/ml (<200)
[2023-06-18 13:22] LABS: Amphetamine/Metha Screen,Urine Negative ng/ml (<1000); Cannabinoid Screen,Urine Negative ng/ml (<50)
[2023-06-18 13:23] LABS: Benzodiazepines Screen,Urine Negative ng/ml (<200)
[2023-06-18 13:24] LABS: Cocaine Screen,Urine Positive ng/ml (<300); Methadone Screen,Urine Negative ng/ml (<300)
[2023-06-18 13:31] LABS: Opiate Screen,Urine Negative ng/ml (<300)
== END ==
PROVIDERS: PCP Emergency Medicine; Visit Provider Emergency Medicine
DX: Z79.899 Other long term (current) drug therapy (principal)
CPT/HCPCS: 80305

== ENCOUNTER → 2023-08-20 08:27 | Outpatient (CLI) | payer MEDICAID, SELFPAY ==
[2023-08-20 21:09] LABS: Amphetamine/Metha Screen,Urine Negative ng/ml (<1000)
[2023-08-20 21:10] LABS: Barbiturates Screen,Urine Negative ng/ml (<200)
[2023-08-20 21:11] LABS: Benzodiazepines Screen,Urine Negative ng/ml (<200)
[2023-08-20 21:12] LABS: Cannabinoid Screen,Urine Negative ng/ml (<50); Cocaine Screen,Urine Negative ng/ml (<300)
[2023-08-20 21:13] LABS: Methadone Screen,Urine Negative ng/ml (<300); Opiate Screen,Urine Negative ng/ml (<300)
[2023-08-20 21:14] LABS: Phencyclidine Screen,Urine Negative ng/ml (<25)
[2023-08-29 16:14] LABS: Opiates Negative ng/mL (Cutoff=100)
== END ==
PROVIDERS: PCP Nurse Practitioner Family; Visit Provider Nurse Practitioner Family
DX: F41.9 Anxiety disorder, unspecified (principal); Z79.899 Other long term (current) drug therapy
CPT/HCPCS: 80305; 80361; G0480

== ENCOUNTER → 2023-08-21 13:35 | Outpatient (CLI) | payer MEDICAID, SELFPAY | PROVIDERS: PCP Nurse Practitioner Family; Visit Provider Nurse Practitioner Family | DX: F11.90 Opioid use, unspecified, uncomplicated (principal); Z79.899 Other long term (current) drug therapy | CPT/HCPCS: 80361; G0480 ==

== ENCOUNTER 2024-03-21 09:07 | Outpatient (CLI) | payer MEDICAID, SELFPAY ==
[2024-03-21 18:28] LABS: Basophils # 0.1 K/mm3 (0-0.2); Basophils % 0.7 % (0.1-2.0); Eosinophils # 0.1 K/mm3 (0.0-0.4); Eosinophils % 1.4 % (0.1-12.0); Hematocrit 45.9 % (37.0-47.0); Hemoglobin 14.9 g/dL (12.2-16.2); Lymphocytes # 4.4 K/mm3 (0.7-4.5); Lymphocytes % 55.2 % (10-50); Mean Corpuscular HGB Conc 32.5 g/dL (31.8-35.4); Mean Corpuscular Hemoglobin 31.9 pg (27.0-31.2); Mean Corpuscular Volume 98.3 fl (81-99); Mean Platelet Volume 8.7 fl (7.4-10.4); Monocytes # 0.5 K/mm3 (0.1-1.0); Monocytes % 6.4 % (1.7-9.3); Neutrophils # 2.9 K/mm3 (1.8-7.8); Neutrophils % 36.3 % (37.0-80.0); Platelet Count 291 K/mm3 (142-424); Red Blood Count 4.67 M/mm3 (4.20-5.40); Red Cell Distribution Width 14.3 % (11.5-17.5)
[2024-03-21 18:37] LABS: MANUAL DIFFERENTIAL MANUAL DIFFERENTIAL (MANUAL DIFF)
[2024-03-21 18:39] LABS: Alanine Aminotransferase 19 U/L (12-78); Albumin Level 4.3 g/dl (3.5-5.0); Albumin/Globulin Ratio 1.3 (1.1-1.8); Alkaline Phosphatase 101 U/L (38-126); Anion Gap 13.5 mEq/L (5-15); Aspartate Amino Transferase 26 U/L (14-36); Bilirubin,Total 0.3 mg/dl (0.2-1.3); Blood Urea Nitrogen 7 mg/dl (7-17); Calcium 9.8 mg/dl (8.4-10.2); Carbon Dioxide 26 mmol/L (22.0-30.0); Chloride 108 mmol/L (98-107); Estimated Glomerular Filt Rate 89 ml/min (>60); GFR (African American) 108 ML/MIN (>60); Globulin 3.4 g/dL (1.3-3.2); Glucose 83 mg/dl (74-100); Potassium 4.5 mmoL/L (3.5-5.1); Sodium 143 mmol/L (136-145); Total Protein,Serum 7.7 g/dl (6.3-8.2)
[2024-03-21 19:14] LABS: Lymphocytes % 59 % (10-50); Monocytes % 2 % (2-9); Neutrophils % 39 % (42-76); Platelet Estimate Normal; RBC Morphology Normal; Total Cells Counted 100
[2024-03-21 19:24] LABS: Hemoglobin A1C 5.7 % (4.0-6.0)
== END 2024-03-21 23:59 | disposition home or self-care (01) ==
LOC: LAB.DROPOF 03-22 09:07
PROVIDERS: PCP Family Medicine; Visit Provider Family Medicine
DX: B34.9 Viral infection, unspecified (principal); E66.9 Obesity, unspecified; Z68.30 Body mass index [BMI] 30.0-30.9, adult
CPT/HCPCS: 80053; 83036; 85007; 85025; 85027

== ENCOUNTER 2024-03-30 11:12 | Outpatient (CLI) | payer MEDICAID, SELFPAY ==
--- NOTE | 2024-03-30 11:21 | XR_ITS ---
FINAL REPORT CLINICAL HISTORY: Left Hip Pain COMPARISON: 02/18/2022 FINDINGS: LEFT HIP: Two views of the left hip demonstrate no acute fracture or dislocation. The joint spaces appear normal. The visualized bony structures are well aligned. No soft tissue abnormality is seen. IMPRESSION: No acute bony abnormality. Reviewed, Interpreted and Dictated by Edwin Balderas MD Transcribed by Ofelia Mcdaniels Authenticated and [facility]
== END 2024-03-30 23:59 | disposition home or self-care (01) ==
LOC: RAD 11:13
PROVIDERS: PCP Family Medicine; Visit Provider Family Medicine
DX: M25.552 Pain in left hip (principal)
CPT/HCPCS: 73502